=== PATIENT | female | born 1965 | race Caucasian/White ===

== ENCOUNTER → 2017-03-10 | Outpatient (CLI) | payer BC ==
[~2017-03-10] MED LIST: ASPIRIN EC325 MG PO; CELECOXIB200 MG PO; COZAAR; COZAAR100 MG PO; DULOXETINE HCL60 MG PO; ENDOCET 5-3251 EACH PO; FERROUS SULFAT325 MG PO; HYDROCODON-ACE1 EAC8 PO; IBUPROFEN400 MG PO; KEFLEX500 MG PO; NORCO 5/3251 TABLET PO; NORVASC10 MG PO; SENNA-TIME S T1 EACH PO; VICODIN,LORT1 TABLET PO; ZOLOFT50 MG PO
== END | disposition home or self-care (01) ==
LOC: AMB 13:00
DX: K63.5 Polyp of colon (principal); K22.10 Ulcer of esophagus without bleeding; K21.9 Gastro-esophageal reflux disease without esophagitis; D50.9 Iron deficiency anemia, unspecified; K64.8 Other hemorrhoids; K44.9 Diaphragmatic hernia without obstruction or gangrene; K57.30 Diverticulosis of large intestine without perforation or abscess without bleeding; F41.9 Anxiety disorder, unspecified; I10 Essential (primary) hypertension; G62.9 Polyneuropathy, unspecified; Z87.891 Personal history of nicotine dependence; Z82.49 Family history of ischemic heart disease and other diseases of the circulatory system
CPT/HCPCS: 88305

== ENCOUNTER 2017-11-21 18:15 | Inpatient (IN) | payer OTHER ==
[~2017-11-21] VITALS: Ht 154.9 cm; Wt 70.5 kg
[~2017-11-21 18:15] MED LIST changes: +OMEPRAZOLE40 M1 PO; +ROPINIROLE HCL2 MG PO
[2017-11-21 19:57] LABS: HEMATOCRIT 36.7 % (36.0-46.0); MCHC 32.7 G/DL (30.0-36.0); MCV 82.5 FL (83-99); PLATELET COUNT 301 K/uL (156-360); RBC DIS.WIDTH-CV 14.4 % (11.8-14.6); RBC DIS.WIDTH-SD 43.7 % (39-53); RED BLOOD COUNT 4.45 M/uL (3.80-5.20); WHITE BLOOD COUNT 7.4 K/uL (4.1-10.2)
[2017-11-21 20:16] LABS: CHLORIDE 106 mEq/L (99-109); POTASSIUM 3.2 mEq/L (3.7-5.4); SODIUM 142 mEq/L (136-147)
[2017-11-21 20:18] LABS: GLUCOSE 105 mg/dL (70-99)
[2017-11-21 20:21] LABS: SERUM ETHYL ALCOHOL < 10 mg/dL
[2017-11-21 20:22] LABS: CREATININE 0.9 mg/dL (0.6-1.3); GFR ESTIMATE (CALCULATED) > 59 mL/min/
[2017-11-21 20:24] LABS: UREA NITROGEN (BUN) 14 mg/dL (9-23)
[2017-11-21 20:25] LABS: SALICYLATE < 5.0 MG/DL (15-30)
[2017-11-21 20:26] LABS: ACETAMINOPHEN (TYLENOL) < 10 mcg/mL (10-30)
[2017-11-21 23:00] VITALS: BP 133/75
[2017-11-22] MEDS ORDERED: COZAAR25 MG PO (08:12)
[2017-11-22] MEDS ORDERED: AMLOD-VALSA-HC1 EAC1 PO (08:15)
[2017-11-22 08:18] VITALS: BP 116/65
[2017-11-22 09:13] VITALS: BP 107/61
[2017-11-22 15:37] VITALS: BP 105/53
[2017-11-23 08:07] VITALS: BP 141/83
[2017-11-23] MEDS ORDERED: ROPINIROLE HCL0.5 MG PO (10:57)
[2017-11-23] MEDS ORDERED: COZAAR25 MG PO (10:57)
[2017-11-23] MEDS ORDERED: AMLOD-VALSA-HC1 EAC1 PO (10:57)
[2017-11-23] MEDS ORDERED: ZOLOFT100 MG PO (10:57)
[2017-11-23] MEDS ORDERED: HYDROCHLOROTH12.5 M3 PO (10:57)
== END 2017-11-23 12:47 | disposition home or self-care (01) | DRG 885 ==
LOC: EME 18:15 → 1WEST 20:34 → EDOF 20:34 → ENRESERV 22:08 → 1WEST 22:55
PROVIDERS: Emergency Medicine
DX: F32.1 Major depressive disorder, single episode, moderate (principal); F41.9 Anxiety disorder, unspecified; R45.851 Suicidal ideations; I10 Essential (primary) hypertension; K21.9 Gastro-esophageal reflux disease without esophagitis; Z96.651 Presence of right artificial knee joint; J45.909 Unspecified asthma, uncomplicated; Z87.891 Personal history of nicotine dependence; Z85.72 Personal history of non-Hodgkin lymphomas; G43.909 Migraine, unspecified, not intractable, without status migrainosus; Z59.9 Problem related to housing and economic circumstances, unspecified
CPT/HCPCS: 80048; 85027; 90839; 97150 GO; 97165 GO; 99281; 99285; G0480; Q0177